=== PATIENT | female | born 1970 ===

== ENCOUNTER → 2016-12-18 | Outpatient (CLI) | payer OTHER ==
--- NOTE | 2016-12-19 09:19 | Diagnostic Imaging Report ---
Indication: Back pain Comparison: None Findings: 3 views of the lumbar spine were obtained. Mild endplate and Facet osteophytes are present. No malalignment identified. No acute fracture definitely seen. Impression: Mild spondylosis. No acute injury appreciated.
== END | disposition home or self-care (01) ==
LOC: RAD 10:44
DX: M54.9 Dorsalgia, unspecified (principal); M47.896 Other spondylosis, lumbar region
CPT/HCPCS: 72110